=== PATIENT | male | born 1990 | race Hispanic/Latino ===

== ENCOUNTER 2023-07-17 19:24 | Emergency (ER) | payer OTHER, SELFPAY ==
--- NOTE | ~2023-07-17 | XR_ITS ---
EXAMINATION: XR finger 3rd LT min 2V DATE: 07/17/2023 20:20 INDICATION: Left hand third digit injury. TECHNIQUE: 3 views of left hand third digit were obtained. COMPARISON: None. FINDINGS: There is mild hyperextension of third proximal interphalangeal joint. There is a comminuted fracture of third distal phalanx involving the proximal articular surface. The main distal fracture fragment demonstrates 8 degrees dorsal angulation. The joint spaces are normal. IMPRESSION: 1. Comminuted fracture of third distal phalanx. Reviewed, dictated and finalized at location E.
[2023-07-17 19:38] VITALS: BP 110/77; PULSE 58; RESP 14; TEMP 36.2; O2SAT 100
[2023-07-17] MEDS: TETANUS,DIPHTHERIA,AC PERTUSSIS ADULT (0.5 ML) BOOSTRIX IM (22:10)
--- NOTE | 2023-07-18 | ED.WOUNDLAC ---
HPI - Wound/Laceration General Chief Complaint: Wound/Laceration Stated Complaint: laceration Time Seen by Provider: 07/17/23 21:03 Source: patient Mode of arrival: ambulatory Limitations: language barrier (using stratus press feeder) History of Present Illness HPI narrative: This is a 33-year-old male that presents to the emergency department for a laceration sustained just prior to arrival. Reports he sustained a laceration at work. Reports bleeding and pain to the area. He is not up-to-date on tetanus. Denies decreased range of motion or numbness. Related Data Allergies Allergy/AdvReac Type Severity Reaction Status Date / Time No Known Allergies Allergy Verified 07/17/23 19:25 Review of Systems Review of Systems: CONSTITUTIONAL: Denies fever SKIN: Reports laceration NEUROLOGIC: Denies numbness All systems reviewed & are unremarkable except as noted in HPI and below PMFSH Past Medical History Medical History (Updated 07/18/23 @ 00:04 by Belkis Ordaz PA-C) No active medical problems Social History Social History (Updated 07/18/23 @ 00:04 by Belkis Ordaz PA-C) Smoking status: Never smoker Exam Narrative: GENERAL: Well-appearing, well-nourished, and in no acute distress. HEAD: Normocephalic, atraumatic. EYES: EOMI. EXTREMITIES: Normal range of motion. No edema or obvious deformity. 1.5 cm linear laceration to subcutaneous tissue to the left third finger palmar surface proximal phalanx. Normal sensation. Normal capillary refill SKIN: Warm, dry, no rash. NEURO: No focal deficits. Alert and oriented x3. PSYCH: Normal mood and affect Course Course Emergency Course: Patient educated on further wound care Vital Signs Vital signs: Vital Signs Temperature 97.1 F L 07/17/23 19:38 Pulse Rate 58 L 07/17/23 19:38 Respiratory Rate 14 07/17/23 19:38 Blood Pressure 110/77 07/17/23 19:38 Pulse Oximetry 100 07/17/23 19:38 Oxygen Delivery Room Air 07/17/23 19:38 Temperature 97.1 F L 07/17/23 19:38 Pulse Rate 58 L 07/17/23 19:38 Respiratory Rate 14 07/17/23 19:38 Blood Pressure 110/77 10/05/23 19:38 Pulse Oximetry 100 07/17/23 19:38 Oxygen Delivery Room Air 07/17/23 19:38 MDM - Wound/Laceration MDM Narrative Medical decision making narrative: Patient presents emergency department for a laceration to the left third finger sustained just prior to arrival. Patient is neurovascularly intact. Left third finger x-ray shows a comminuted fracture of the third distal phalanx. This is actually a prior injury for the patient. Patient's injury today is at the proximal phalanx. His wound was thoroughly irrigated and closed with sutures. He was updated on tetanus. Educated on wound care. He is to follow-up with primary provider. He was given warnings to return to the ER Differential Diagnosis Differential diagnosis: Likely laceration and avulsion of skin Imaging Data Radiologist's impression: ITS Impressions Finger X-Ray 07/17/23 20:29 IMPRESSION: 1. Comminuted fracture of third distal phalanx. Critical Care Time Critical Care Time Critical Care Time: No Discharge Plan Discharge Clinical Impression: Laceration Patient Disposition: Home, Self-Care Condition: Stable Instructions: Antibiotic Form, Care For Your Stitches (ED), Laceration (ED) Additional Instructions: Return to the emergency department if you experience fever, redness or swelling of your wound, abnormal drainage from your wound, or any other symptoms that are concerning to you. Apply antibiotic ointment daily. Do not soak the wound. Clean with mild soap and water daily Follow-up with primary care doctor for suture removal in 10-14 days. Patient Language: Kinyarwanda Prescriptions: New cephalexin 500 mg capsule 500 mg PO Q8H 5 Days Qty: 15 0RF Follow-up/Referrals: Anastacio Cervantes DO [Physician] - 2 Weeks PHYSICIAN,ROLLING MACHINE TENDER [Primary Care Pro
== END 2023-07-18 00:16 | disposition home or self-care (01) ==
PROVIDERS: Emergency Provider Physician Assistant
DX: S61.213A Laceration without foreign body of left middle finger without damage to nail, initial encounter (principal); Z23 Encounter for immunization; S62.633D Displaced fracture of distal phalanx of left middle finger, subsequent encounter for fracture with routine healing; X58.XXXD Exposure to other specified factors, subsequent encounter; W27.8XXA Contact with other nonpowered hand tool, initial encounter
CPT/HCPCS: 12001; 73140; 90471; 90715; 99283